=== PATIENT | female | born 1970 | race Asian ===

== ENCOUNTER 2018-05-08 20:50 | Observation (INO) | payer OTHER ==
[2018-05-08] MEDS ORDERED: NS 1,000 ML IV ONE (21:12)
[2018-05-08] MEDS ORDERED: IOPAMIDOL (ISOVUE-300) 100 ML BTL ONE (22:22)
--- NOTE | 2018-05-08 22:33 | EDPHY ---
H & P Stated Complaint: ABDO PAIN-RLQ, EPIGASTRIC SINCE SAT. Time Seen by Provider: 05/08/18 20:53 HPI/ROS: 47-year-old female presents complaining of 2 days of abdominal pain that began in the epigastric area and is now more prominent in the right lower quadrant area. No nausea, no vomiting, no diarrhea, no constipation . No prior abdominal surgeries Patient last ate at 5:00 p.m., she states she had a small amount of black tea at 7:00 p.m. Review of systems As per HPI General no fever no chills no weakness HEENT no eye pain no eye discharge. No eye redness, no sore throat Respiratory no cough, no shortness of breath Cardiac no chest pain, no peripheral edema GI positive abdominal pain, no diarrhea, no constipation, no nausea, no vomiting no flank pain, no hematuria, no dysuria Musculoskeletal no myalgias, no joint pain Heme no easy bruising, no easy bleeding Endo no polyuria, no polydipsia Skin no rashes, no pruritus Neuro no syncope, no dizziness, no headaches Psych is no suicidal ideation, no homicidal ideation Source: Patient, Django Developer Exam Limitations: Language barrier - Personal History LMP (Females 10-55): IUD In Place Current Tetanus/Diphtheria Vaccine: Unsure Current Tetanus Diphtheria and Acellular Pertussis (TDAP): Unsure - Medical/Surgical History Hx Asthma: No Hx Chronic Respiratory Disease: No Hx Diabetes: No Hx Cardiac Disease: No Hx Renal Disease: No Hx Cirrhosis: No Hx Alcoholism: No Hx HIV/AIDS: No Hx Splenectomy or Spleen Trauma: No Other PMH: Denies. Takes Tibetan medication for gastric bloating. - Family History Significant Family History: No pertinent family hx - Social History Smoking Status: Never smoked Alcohol Use: None Drug Use: None - Physical Exam Exam: 47-year-old female alert and oriented no acute distress nontoxic appearance, afebrile HEENT atraumatic normocephalic, extraocular muscles intact, anicteric Oropharynx negative for erythema negative exudate, tolerating her own secretions Neck supple no meningismus Lungs clear to auscultation bilaterally Heart regular rate and rhythm without murmur rub or gallop Abdomen nondistended normoactive bowel sounds soft, tenderness to palpation epigastric right middle and right lower quadrant with guarding pos rovsings Back no CVA tenderness, no step-offs, no spinal tenderness Extremities no cyanosis clubbing or edema Neuro alert and oriented, no focal deficits Constitutional: Initial Vital Signs Temperature (C) 37.2 C 05/08/18 21:01 Heart Rate 62 05/08/18 21:01 Respiratory Rate 18 05/08/18 21:01 Blood Pressure 112/73 05/08/18 21:01 O2 Sat (%) 97 05/08/18 21:01 O2 Delivery Mode Room Air Allergies/Adverse Reactions: No Known Allergies Allergy (Unverified 05/08/18 21:05) Home Medications: Medication Instructions Recorded Tibetan Herbal Medication. 05/08/18 Medical Decision Making - Diagnostics Imaging Results: Imaging Impressions Abdomen CT 05/08/18 22:11 Impression: 1. Acute appendicitis. 2. Moderate free fluid in the cul-de-sac, measuring less than 20 in Hounsfield unit. This may represent a normal amount of free fluid and/or reactive fluid. No definitive evidence for abscess at this time. Findings and recommendations discussed with Roxane Elliott M.D., at 1053 hours, on May 08, 2018. Final report concurs with initial preliminary interpretation. E:SANJAY/yuko ED Course/Re-evaluation: Patient seen and evaluated for abdominal pain of 2 days duration. Labs Lactate normal WBC normal CT abdomen Positive acute appendicitis Patient given normal saline 1 L, morphine 2 mg IV push Invanz 1 g IV piggyback Discussed case with Dr. Rdz Impression Acute appendicitis Plan Transfer to [facility] Emergency Department Differential Diagnosis: Differential diagnosis considered but not limited to: Acute appendicitis, cholecystitis, gastroenteritis, gastritis, pancreatitis - Data Points Laboratory Results: Laboratory Results 05/08/18 21:15 05/08/18 05/08/18 05/08/18 21:23 21:23 21:15 WBC RBC Hgb Hct MCV MCH MCHC RDW Plt Count MPV Neut % (Auto) Lymph % (Auto) [place] % (Auto) Eos % (Auto) Baso % (Auto) Nucleat RBC Rel Count Absolute Neuts (auto) Absolute Lymphs (auto) Absolute Monos (auto) Absolute Eos (auto) Absolute Basos (auto) Absolute Nucleated RBC Immature Gran % Immature Gran # POC Sodium 139 mEq/L mEq/L (135-145) POC Potassium 3.6 mEq/L mEq/L (3.3-5.0) POC Chloride 108.0 mEq/L mEq/L (97-110) POC Total CO2 22 mEq/L mEq/L (22-31) POC BUN 12 mg/dL mg/dL (7-23) POC Creatinine 1.1 mg/dL H mg/dL (0.6-1.0) POC Glucose 91 mg/dL mg/dL (70-100) POC Lactic Acid Abe 0.5 mmol/L L mmol/L (0.7-2.1) POC Calcium 8.8 mg/dL mg/dL (8.5-10.4) POC Total Bilirubin 1.3 mg/dL mg/dL (0.1-1.4) POC AST 38 IU/L IU/L (14-46) POC ALT 30 IU/L IU/L (9-52) POC Alk Phosphatase 57 IU/L IU/L (38-126) POC Total Protein 7.0 g/dL g/dL (6.3-8.2) POC Albumin 3.5 g/dL g/dL (3.5-5.0) Lipase 235 IU/L IU/L (23-300) 05/08/18 21:15 WBC 5.96 10^3/uL 10^3/uL (3.80-9.50) RBC 4.01 10^6/uL L 10^6/uL (4.18-5.33) Hgb 12.5 g/dL L g/dL (12.6-16.3) Hct 36.8 % L % (38.0-47.0) MCV 91.8 fL fL (81.5-99.8) MCH 31.2 pg pg (27.9-34.1) MCHC 34.0 g/dL g/dL (32.4-36.7) RDW 13.2 % % (11.5-15.2) Plt Count 294 10^3/uL 10^3/uL (150-400) MPV 10.4 fL fL (8.7-11.7) Neut % (Auto) 56.5 % % (39.3-74.2) Lymph % (Auto) 33.4 % % (15.0-45.0) [place] % (Auto) 8.1 % % (4.5-13.0) Eos % (Auto) 1.5 % % (0.6-7.6) Baso % (Auto) 0.3 % % (0.3-1.7) Nucleat RBC Rel Count 0.0 % % (0.0-0.2) Absolute Neuts (auto) 3.37 10^3/uL 10^3/uL (1.70-6.50) Absolute Lymphs (auto) 1.99 10^3/uL 10^3/uL (1.00-3.00) Absolute Monos (auto) 0.48 10^3/uL 10^3/uL (0.30-0.80) Absolute Eos (auto) 0.09 10^3/uL 10^3/uL (0.03-0.40) Absolute Basos (auto) 0.02 10^3/uL 10^3/uL (0.02-0.10) Absolute Nucleated RBC 0.00 10^3/uL 10^3/uL (0-0.01) Immature Gran % 0.2 % % (0.0-1.1) Immature Gran # 0.01 10^3/uL 10^3/uL (0.00-0.10) POC Sodium POC Potassium POC Chloride POC Total CO2 POC BUN POC Creatinine POC Glucose POC Lactic Acid Abe POC Calcium POC Total Bilirubin POC AST POC ALT POC Alk Phosphatase POC Total Protein POC Albumin Lipase Medications Given: Discontinued Medications Sodium Chloride (Ns) 1,000 mls @ 0 mls/hr IV ONCE ONE PRN Reason: Wide Open Stop: 05/08/18 21:13 Last Admin: 05/08/18 21:24 Dose: 1,000 mls Morphine Sulfate (Morphine) 4 mg IVP EDNOW ONE Stop: 05/08/18 21:14 Last Admin: 05/08/18 21:25 Dose: 2 mg Point of Care Test Results: Chemistry 05/08/18 21:23 POC Sodium 139 mEq/L mEq/L (135-145) POC Potassium 3.6 mEq/L mEq/L (3.3-5.0) POC Chloride 108.0 mEq/L mEq/L (97-110) POC Total CO2 22 mEq/L mEq/L (22-31) POC BUN 12 mg/dL mg/dL (7-23) POC Creatinine 1.1 mg/dL H mg/dL (0.6-1.0) POC Glucose 91 mg/dL mg/dL (70-100) POC Calcium 8.8 mg/dL mg/dL (8.5-10.4) POC Total Bilirubin 1.3 mg/dL mg/dL (0.1-1.4) POC AST 38 IU/L IU/L (14-46) POC ALT 30 IU/L IU/L (9-52) POC Alk Phosphatase 57 IU/L IU/L (38-126) POC Total Protein 7.0 g/dL g/dL (6.3-8.2) POC Albumin 3.5 g/dL g/dL (3.5-5.0) Blood Gas/Lactic Acid-Venous 05/08/18 21:23 POC Lactic Acid Abe 0.5 mmol/L L mmol/L (0.7-2.1) Urine Collection Date 05/08/18 Collection Time 21:49 HCG Results Negative Urine Dip Collection Date 05/08/18 Collection Time 21:47 Specific [place] (1.002-1.030) 1.015 PH (5.0-7.5) 5.5 Leukocytes (Negative) Negative Nitrites (Negative) Negative Protein (Negative) Negative Glucose (Negative) Negative Ketones (Negative) Negative Urobilnogen (0.2-1.0 EU) 0.2 Bilirubin (Negative) Negative Blood (Negative) 1+ Departure - Departure Disposition: [facility] ER Clinical Impression: Acute appendicitis Condition: Good Referrals: Charlee Chen MD [Primary Care Provider] - As per Instructions
[2018-05-08] MEDS ORDERED: ERTAPENEM 1 GM in NS 100 ML IV ONE (23:03)
[2018-05-08 23:04] LABS: PLATELET COUNT 294 10^3/uL (150-400)
[2018-05-09] MEDS ORDERED: HYDROmorphONE/DILAUDID 1 MG/ML INJ IVP PRN ×2 (00:50→10:40)
[2018-05-09] MEDS ORDERED: ONDANSETRON 4 MG/2 ML VIAL IVP PRN ×2 (00:50→10:39)
[2018-05-09] MEDS ORDERED: ACETAMINOPHEN 325 MG TAB PO SCH (01:00)
[2018-05-09] MEDS ORDERED: LR 1,000 ML IV SCH ×2 (01:00→11:00)
--- NOTE | 2018-05-09 01:35 | GHP ---
[f rep st] PREOP HISTORY AND PHYSICAL DATE OF ADMISSION: 05/09/2018 HISTORY OF PRESENT ILLNESS: Tanesha Reynolds is a 47-year-old Tibetan female who presents with abdominal pain. She actually has 2 issues. The first is an acid reflux problem that has been going on for 10 years. She has taken oral Tibetan medication and when she does take that her reflux is decreased to approximately 3 times a weekl. She has never had an upper endoscopy. She has not noticed bloody stools. The issue causing her current presentation was an onset at 9:00 p.m. Sunday (2 days prior) of a severe epigastric pain which went then to her right lower quadrant then to her back. She had dinner at 8:00 p.m. consisting of a radish- type vegetable, yogurt and an orange and at 9:00 p.m. she had the discomfort. On Sunday, she did eat at approximately 3:00 p.m. and had loose stool Sunday night. She did sleep well last night and at noon today she ate well and again had loose stool. She complains of pain such that she cannot stand up. It hurts when she moves but not when she does not move. She has not had a recent upper respiratory tract infection nor she had recent diarrhea. There is no history of travel outside the [place] in the last 6 months or antibiotic use. There is no history of inflammatory bowel disease. There is no history of prior surgery or prior similar episode. She was seen at [facility] where a CT was performed of her abdomen, which showed an appendix which was 12 mm in diameter. There was no wall thickening. There is no periappendiceal inflammation. There is no appendicolith. There is fluid in the pelvis that had a Hounsfield number of 20 consistent with a sympathetic effusion. Her lactate was 0.5. Creatinine was 1.1. Her BUN is 12 and her lipase was 235. Based on those findings, she was sent to [facility] for evaluation for possible appendicitis. Her CBC was finally processed by the time she arrived, and it showed a white count of 5.9 with 55% neutrophils. Hematocrit is 37. PAST MEDICAL HISTORY: She does not use tobacco products. She sips a small amount of whiskey at night for a sleep aid. She has no known drug allergies. Her only surgery has been a hemorrhoidectomy in the remote past. There is no history of rheumatic fever, tuberculosis, hepatitis, transfusions. REVIEW OF SYSTEMS: She wears lenses for visual correction. She was told that she had an ulcer in 2007. She was also told that she had a fatty liver by ultrasound examination and needed to lose some weight. There are no limits on her activities. No history of recent steroid use. PHYSICAL EXAMINATION: GENERAL: She is sitting in bed. She is able to comprehend Khmer but she responds in her [place] language to her family who translates and provides me with her response. NEURO: She is awake and alert, engaging. Her skull is normocephalic and atraumatic. [place] Coma Scale is 15. She is oriented to person, place, and time. VITAL SIGNS: Blood pressure was 96/70. There is no thyroid enlargement. No carotid bruits. LYMPHATICS: Shows that there is no cervical, supraclavicular, axillary, or inguinal lymphadenopathy. LUNGS: Clear to auscultation. CARDIAC: Shows S1, S2 to be normal eith a normal split of S2. ABDOMEN: Shows hypoactive bowel sounds. With cough, she is tender in the midline, low in the hypogastrium. This is a 5 on a scale of 1-10. Psoas sign is negative. She reports her obturator sign is negative. I am not sure of her reporting on that test. To palpation, her left upper quadrant is 1, left mid abdomen is 3, left lower quadrant is 1, epigastrium is 4, periumbilical region is 6, suprapubic area is 6, right upper quadrant is 4, right mid abdomen is 6, right lower quadrant is 6. IMPRESSION: She has abdominal pain of uncertain etiology. I cannot exclude early appendicitis as a possibility, but with the findings on CT scan and her white count, I wonder if there could be a parasitic cause or gastrointestinal cause of her discomfort. She will be admitted to the hospital, placed n.p.o., she will receive intravenous hydration. She will be given a proton pump inhibitor. Stool will be collected for enteric pathogens and ova parasites. Once that has been completed, she will be started on Rocephin and Flagyl. Followup laboratories will be obtained. /[id number]/MODL MTDD
[2018-05-09] MEDS: ACETAMINOPHEN 500 MG TAB PO SCH ×3 (02:02→18:08)
[2018-05-09 05:08] LABS: PLATELET COUNT 259 10^3/uL (150-400)
[2018-05-09] MEDS ORDERED: KETOROLAC 30 MG/1 ML SDV IVP SCH (06:00)
[2018-05-09] MEDS ORDERED: PANTOPRAZOLE SODIUM 40 MG VIAL IVP SCH (09:00)
[2018-05-09] MEDS: KETOROLAC 30 MG/1 ML SDV IVP SCH ×2 (12:00→18:38)
[2018-05-09] MEDS ORDERED: CARBOXYMETHYLCELLULOSE 1% 0.4 ML DROPERETTE EACHEYE PRN (17:34)
--- NOTE | 2018-05-09 17:40 | SOAPPROG ---
SOAP Progress Note Assessment/Plan: 05/09/18 17:37 Assessment: Course suggests an enteric process not appendicitis. Pain and WBC better with only bowel rest. No stool yet for testing C/o epigastric pain ( chronic, now on PPI) Plan: Clear liquids collect stool Carafate Subjective: I still have ( lower hypogastric) pain and now my (epigastric ) pain is bothersome Objective: Vital Signs Temp Pulse Resp BP Pulse Ox 36.9 C 54 L 16 94/52 L 95 05/09/18 15:59 05/09/18 15:59 05/09/18 15:59 05/09/18 15:59 05/09/18 15:59 Laboratory Results 05/09/18 04:40 05/09/18 04:40 05/08/18 05/09/18 05/10/18 05:59 05:59 05:59 Intake Total 1500 Balance 1500 - Time Spent With Patient Time Spent With Patient: 15 Physical Exam - Physical Exam General Appearance: WD/WN, alert, mild distress Neck: non-tender, full range of motion, supple, normal inspection Respiratory: chest non-tender, lungs clear, normal breath sounds Cardiac/Chest: regular rate, rhythm Abdomen: normal bowel sounds, soft, other (tender with cough in midline hypogastrium but less than yesterday) Pelvic Exam: deferred Rectal: deferred Back: Normal inspection Skin: normal color, warm/dry, cyanosis Lymphatic: no adenopathy Extremities: normal inspection, normal capillary refill Neuro/Psych: no motor/sensory deficits, alert, normal mood/affect, oriented x 3 ICD10 Worksheet Patient Problems: Problems Problem Status Onset Acute appendicitis Acute
[2018-05-09] MEDS: SUCRALFATE 1 GM/10 ML UDCUP PO SCH (21:25)
[2018-05-10] MEDS: KETOROLAC 30 MG/1 ML SDV IVP SCH ×3 (00:06→13:00)
[2018-05-10] MEDS: ACETAMINOPHEN 500 MG TAB PO SCH ×4 (00:06→13:00)
[2018-05-10 05:31] LABS: PLATELET COUNT 252 10^3/uL (150-400)
[2018-05-10] MEDS: SUCRALFATE 1 GM/10 ML UDCUP PO SCH ×2 (07:51→13:00)
[2018-05-10] MEDS ORDERED: CHOLECALCIFEROL VIT D3 1,000 UNITS TAB PO SCH (09:00)
[2018-05-10] MEDS ORDERED: PANTOPRAZOLE SODIUM 40 MG VIAL IVP SCH (09:00)
[2018-05-10] MEDS ORDERED: OMEGA-3 FATTY ACIDS 1,000 MG CAP PO SCH (09:00)
[2018-05-10 11:49] VITALS: BP 102/67
--- NOTE | 2018-05-10 14:00 | ASMTLACE ---
HERBIE Length of stay for Answers: 1 day current admission Comorbidities - select Answers: Other Notes: gerd all that apply # of Emergency department Answers: 1-2 visits in the last 6 months Score: 3 Date Signed: 05/10/2018 02:00 PM Electronically Signed By:Kelin Dudley RN
--- NOTE | 2018-05-10 14:05 | ASMTCMCOM ---
CM Note CM Note Notes: Chart reviewed. Patient has been medically cleared for discharge to home. No needs identified. CM availble should needs arise. Plan: Home independently. Date Signed: 05/10/2018 02:05 PM Electronically Signed By:Kelin Dudley RN
== END 2018-05-10 16:50 | disposition home or self-care (01) ==
LOC: CED 23:33 → F3E 05-09 01:39
PROVIDERS: ADMIT Surgery; ATTEND Surgery
DX: K35.80 Unspecified acute appendicitis (principal); K21.9 Gastro-esophageal reflux disease without esophagitis; R10.13 Epigastric pain
CPT/HCPCS: 74177; 96361; 96365; 96375; 99285; G0378; 80053-PO; 83605-PO; J0696; J1335; J1885; J2270; Q9967

== ENCOUNTER → 2018-08-29 | Outpatient (CLI) | payer OTHER | LOC: CIMAGING 10:37 | PROVIDERS: ATTEND Family Medicine | DX: Z12.31 Encounter for screening mammogram for malignant neoplasm of breast (principal) ==

== ENCOUNTER → 2018-09-09 | Outpatient (CLI) | payer OTHER | LOC: CIMAGING 13:15 | PROVIDERS: ATTEND Family Medicine | DX: R92.8 Other abnormal and inconclusive findings on diagnostic imaging of breast (principal) | CPT/HCPCS: 76641-PO ==